=== PATIENT | male | born 2000 | race Caucasian/White ===

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

== ENCOUNTER 2025-07-16 08:27 | Emergency (ER) | payer OTHER, SELFPAY ==
--- NOTE | ~2025-07-16 | XR_ITS ---
XR lumbar spine 2-3V Indication: back pain Comparison: None Findings: The vertebral heights are intact. No fracture or subluxation. The disc heights are intact. Soft tissues unremarkable Impression: No acute abnormality. Reviewed, dictated and finalized at location P. ALLER INSPECTOR FINAL Impression: No acute abnormality.
--- NOTE | ~2025-07-16 | XR_ITS ---
EXAMINATION: XR chest 2V, 07/16/2025 9:06 HISTORIAN RESEARCH ASSISTANT HISTORY: chest pain X 3 DAYS, ASTHMA, VAPES COMPARISON: No comparisons available. Technique: 2 views obtained. Findings: The lungs are clear, no effusion. No pneumothorax. Heart is normal size. Mediastinal and hilar contours are within normal limits. Bony thorax no acute abnormality. Impression: No acute cardiopulmonary abnormality. Reviewed, dictated and finalized at location P. ORIAN RESEARCH ASSISTANT Impression: No acute cardiopulmonary abnormality.
--- NOTE | 2025-07-16 08:34 | ECG_ITS ---
Test Date: 2025-07-16 08:38:34 Measurements Intervals Llewellyn Rate: 76 P: 28 NM: 171 QRS: 64 QRSD: 99 T: 9 QT: 343 QTc: 387 Interpretive Statements SINUS RHYTHM NORMAL ELECTROCARDIOGRAM No previous ECG available for comparison Electronically Signed On 07-16-2025 17:24:13 ASIAN ART CURATOR by Guido Wray M.D.
[2025-07-16 08:35] VITALS: BP 150/95; PULSE 80; PULSE 88; RESP 17; TEMP 36.4; O2SAT 100
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
[2025-07-16 08:46] VITALS: BP 133/86; PULSE 79; RESP 20; O2SAT 99
[2025-07-16 09:01] VITALS: BP 137/96; PULSE 78; RESP 17; O2SAT 99
--- NOTE | 2025-07-16 09:02 | ED_ITS ---
HPI - General Adult General Chief complaint: Back Pain/Injury Stated complaint: back pain since Tuesday. Palpitations Time Seen by Provider: 07/16/25 08:29 History of Present Illness HPI narrative: 25-year-old male with no significant past medical history presented to the emergency department for evaluation for lower back pain that started few days ago. Patient states that lower back pain has radiated up into his upper back and into his chest over the last few days and this morning. Patient states he did have an episode of some heart palpitations that lasted approximately 2 minutes. Patient was unable to measure his pulse at that time. Patient has no prior history of coronary disease, SVT, atrial fibrillation. Patient's primary complaint at time of evaluation is lumbar back pain Related Data Allergies Allergy/AdvReac Type Severity Reaction Status Date / Time fluoxetine (From Prozac) Allergy Unknown Hallucinati Verified 07/16/25 08:39 ng bacitracin (From Neosporin AdvReac Mild Rash Verified 07/16/25 08:39 ([id number])) neomycin (From Neosporin AdvReac Mild Rash Verified 07/16/25 08:39 ([id number])) polymyxin B (From Neosporin AdvReac Mild Rash Verified 07/16/25 08:39 ([id number])) Review of Systems 2 Review of Systems: All systems reviewed & are unremarkable except as noted in HPI and below PMFSH Past Medical History Medical History (Updated 07/16/25 @ 17:35 by Mahad Winston MD) Subdural hematoma Subarachnoid hemorrhage Epidural hematoma Fracture of parietal bone of skull Asthma Inguinal hernia (~05/2017) Surgical History Surgical History Hx of tympanostomy tubes History of hernia repair Family History Family History Mother Depression Bipolar 1 disorder Hypertension Father Mixed hyperlipidemia Social History Social History Years smoked: 3 Tobacco type: e-cigarettes/vaping Alcohol intake: unknown Substance use: current Substance use type: marijuana Occupation/Education: occupation Gender identity (if verbalized by the patient): Male Exam 2 Narrative: APPEARANCE: Well appearing, no pain, no distress, well-nourished. HEAD: normocephalic, atraumatic. EYES: PERRLA/EOMI, conjunctivae clear. NOSE: Normal no drainage EARS:TMS clear with good light reflex. THROAT: Pharynx clear, no exudate. NECK: Supple. No adenopathy, no masses. RESPIRATORY: Airway patent, respirations nonlabored. Clear to auscultation bilaterally, no rales, rhonchi, wheezing. CARDIOVASCULAR: Regular rate and rhythm without murmurs rubs or gallops. ABDOMINAL: Soft, nontender, nondistended, normal bowel sounds MUSCULOSKELETAL: Moves all extremities. Strength/ROM intact, No edema, No calf tenderness. NEURO: Alert. Cranial nerves II through XII intact. Good gait. Good coordination SKIN: Warm, dry. Normal Color Course Vital Signs Vital signs: Vital Signs Temperature 97.6 F 07/16/25 08:35 Pulse Rate 88 07/16/25 08:35 Respiratory Rate 17 07/16/25 08:35 Blood Pressure 150/95 H 07/16/25 08:35 Pulse Oximetry 100 07/16/25 08:35 Oxygen Delivery Room Air 07/16/25 08:35 Temperature 97.6 F 07/16/25 08:35 Pulse Rate 64 07/16/25 11:52 Respiratory Rate 16 07/16/25 11:52 Blood Pressure 115/72 07/16/25 11:52 Pulse Oximetry 98 07/16/25 11:52 Oxygen Delivery Room Air 07/16/25 08:35 Medical Decision Making [facility] Narrative Medical decision making narrative: 25-year-old male presents to the emergency department for evaluation for lower back pain and heart palpitations. Patient is currently afebrile with no leukocytosis hemoglobin of 14.9. D-dimer was ordered to evaluate for risk for pulmonary embolus. Patient's D-dimer was not elevated. Patient has no acute abnormalities on his CMP and patient has a normal TSH and Mag. Urine was negative for infection. Chest x-ray was ordered to evaluate for any cardiopulmonary abnormality related to his heart palpitations and intermittent upper back and chest pain. Lumbar x-ray was ordered to evaluate his lower back pain. Patient had a negative chest x-ray and negative lumbar spine x-ray. Patient was treated with Toradol for back pain and was also treated with a L of lactated Ringer's. On re-evaluation patient states he does feel improved. Patient was encouraged to take Tylenol and ibuprofen for the lower back pain and to have close follow-up with his primary care physician. Differential Diagnosis Differential Diagnosis: Back strain, back fracture, pulmonary embolism, pneumonia, SVT, AFib Vital Signs Vital Signs: Vital Signs Temperature 97.6 F 07/16/25 08:35 Pulse Rate 88 07/16/25 08:35 Respiratory Rate 17 07/16/25 08:35 Blood Pressure 150/95 H 07/16/25 08:35 Pulse Oximetry 100 07/16/25 08:35 Oxygen Delivery Room Air 07/16/25 08:35 Temperature 97.6 F 07/16/25 08:35 Pulse Rate 64 07/16/25 11:52 Respiratory Rate 16 07/16/25 11:52 Blood Pressure 115/72 07/16/25 11:52 Pulse Oximetry 98 07/16/25 11:52 Oxygen Delivery Room Air 07/16/25 08:35 Lab Data Lab results reviewed: Yes I reviewed the patient's lab results. 07/16/25 09:31 07/16/25 09:31 Labs: Lab Results 07/16/25 Range/Units 09:31 WBC 5.2 (4.5-10.0) K/mm3 RBC 5.19 (4.6-6.20) M/mm3 Hgb 14.9 (14.0-18.0) g/dL Hct 44.2 (42.0-52.0) % MCV 85.2 (80-100) fl MCH 28.7 (26-34) pg MCHC 33.7 (32-36) g/dl RDW 12.9 (11.5-14.5) % Plt Count 270 (150-375) k/mm3 MPV 10.8 H (7.4-10.4) fl Immature Gran % (Auto) 0.2 (0-0.5) % Neut % (Auto) 53.0 (45.5-73.1) % Lymph % (Auto) 30.1 (18.3-44.2) % [place] % (Auto) 13.2 H (2.6-8.5) % Eos % (Auto) 2.7 (0-4.4) % Baso % (Auto) 0.8 (0.2-1.2) % Lymph # (Auto) 1.57 (0.9-3.2) K/mm3 [place]och # (Auto) 0.7 H (0.1-0.6) K/mm3 Eos # (Auto) 0.1 (0-0.3) K/mm3 Baso # (Auto) 0.0 (0.0-0.1) K/mm3 Abs Immat Gran (auto) 0.01 (0.00-0.031) K/mm3 Absolute Neuts (auto) 2.8 (1.3-6.7) K/mm3 Absolute Nucleated RBC 0.000 (0.0-0.012) K/mm3 Nucleated RBC % 0.0 (0.0-0.2) % D-Dimer 0.42 (<0.48) ug/mL Sodium 141 (137-145) mmol/L Potassium 3.8 (3.4-5.0) mmol/L Chloride 105 (98-107) mmol/L Carbon Dioxide 30 (22-30) mmol/L Anion Gap 6 (4-12) mmol/L BUN 11 (9-20) mg/dL Creatinine 0.92 (0.7-1.3) mg/dL Estim Creat Clear Calc 112 ml/min Estimated GFR > 60 (59 - ) Glucose 91 (65-110) mg/dL Calcium 9.8 (8.4-10.2) mg/dL Magnesium 2.1 (1.6-2.3) mg/dL Total Bilirubin 1.5 H (0.2-1.3) mg/dL AST 31 (17-59) U/L ALT 20 (6-50) U/L Alkaline Phosphatase 78 (38-126) U/L Total Protein 8.4 H (6.3-8.2) g/dL Albumin 4.8 (3.5-5.1) g/dL TSH (Reflex) 1.980 (0.465-4.68) uIU/mL Urine Color Yellow (Yellow) Urine Appearance Clear (Clear) Urine pH 7.5 (5.0-9.0) Ur Specific [place] 1.006 (1.001-1.035) Urine Protein Negative (Negative) mg/dL Urine Glucose (UA) Negative (Negative) mg/dL Urine Ketones Negative (Negative) mg/dL Ur Blood (Man) Negative (Negative) Urine Nitrate Negative (Negative) Urine Bilirubin Negative (Negative) Urine Urobilinogen 0.2 (<2.0) mg/dL Leukocyte Esterase Rfl Negative (Negative) BLADIMIR/UL Imaging Data Radiologist's impression: Impressions Chest X-Ray 07/16/25 09:20 Impression: No acute cardiopulmonary abnormality. Lumbar Spine X-Ray 07/16/25 09:20 Impression: No acute abnormality. Discharge Plan Discharge Clinical Impression: Back pain, Palpitations Patient Disposition: Home Condition: Stable Instructions: Antibiotic Form, Back Pain (ED) Additional Instructions: Tylenol and ibuprofen for pain control. Flexeril for muscle spasm. Have have close follow-up with your primary care physician. If you have any worsening symptoms and please call or return to the emergency department. Patient Language: Yi Prescriptions: New cyclobenzaprine 10 mg tablet 10 mg PO BID PRN (Reason: muscle spasm) Qty: 14 0RF No Action albuterol sulfate 90 mcg/actuation HFA aerosol inhaler 2 inh INHALATION Q4-6H PRN (Reason: shortness of breath or wheezing) Qty: 8.5 1RF Follow-up/Referrals: Zack,MD Geoff [Primary Care Provider, Unknown]
--- OUTSIDE RECORDS SUMMARY | 2025-07-16 09:21 | XMS_ITS | Clinical Summary ---
Author Organization [facility] Address [address] [place] [address] Care Team Providers Care Follow Up Specialist Name Role Phone Josefina Grant MD Primary Care Provider [phone] Source Comments [facility],non-owned Affiliates and Associated Physician Practices is amultiple site organization consisting of ambulatory clinics and hospital sitesin [place], [place], [place] and [place]. This disclosure is being madepursuant to the Care Everywhere program and may not contain all information available regarding this patient. 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:41 AM PROFESSOR OF ECONOMICS Gender Identity Not on file Sexual Orientation Not on file Last Filed Vital Signs Vital Sign Reading Time Taken Comments Blood Pressure 128/74 07/26/2024 4:31 AM PROFESSOR OF ECONOMICS Pulse 76 07/26/2024 4:31 AM PROFESSOR OF ECONOMICS Temperature 37 C (98.6 F) 07/25/2024 10:04 PM PROFESSOR OF ECONOMICS Respiratory Rate 16 07/26/2024 4:31 AM PROFESSOR OF ECONOMICS Oxygen Saturation 100% 07/26/2024 4:31 AM PROFESSOR OF ECONOMICS Inhaled Oxygen Concentration - - Weight 68 kg (150 lb) 07/25/2024 10:04 PM PROFESSOR OF ECONOMICS Height 177.8 cm (5' 10) 07/25/2024 10:04 PM PROFESSOR OF ECONOMICS Body Mass Index 21.52 07/25/2024 10:04 PM PROFESSOR OF ECONOMICS Plan of Treatment Health Maintenance Due Date [...] patient's age to complete this topic Insurance [employer] [facility] [employer] Advance Directives * Full Code (Latest Code Status on File) Date Activated Date Inactivated Comments 04/06/2021 10:40 PM 04/09/2021 5:35 PM * Full Code Date Activated Date Inactivated Comments 04/13/2017 4:17 PM 04/18/2017 10:38 AM Care Teams Follow Up Specialist Relationship Specialty Start Date End Date Josefina Grant MD [address] [place] [address] PCP - General Family Medicine 05/14/21
--- OUTSIDE RECORDS SUMMARY | 2025-07-16 09:21 | XMS_ITS | Clinical Summary ---
Author Organization [facility] Address [address] [place] [address] Care Team Providers Care Gym Teacher Name Role Phone Geoff Dixon MD Primary Care Provider [phone] Allergies Active Allergy Reactions Criticality Noted Date Comments Emdtxmfu-[id number]-Sxdyiymoo Itching,Redness Low 0 10/30/2024 Medications cetirizine (ZyrTEC) [...] (05/15/2018): Added automatically from request for surgery [id number] Inguinal hernia 05/04/2018 Scrotal pain 05/02/2018 MDD [...] above. Assessment & Plan (08/02/2018 5:46 PM PRISON TEACHER): Angel Luis appears to be euthymic, denies [...] treatment. Assessment & Plan (08/02/2018 7:28 PM PRISON TEACHER): Patient still with anxiety symptoms, including anticipatory [...] on file Legal Sex Male 3:30 AM PRISON TEACHER Gender Identity Not on file Sexual Orientation [...] 10/20, 03/05/2015 Medical Devices Implanted Type Area Stove Bottom Worker Device Identifier Shelf Expiration Date Model / Serial / Lot [employer] [id number] Soft Mesh 6x6in Patch Knitted Flat Sheet Groin Hernia Square Mesh - [id number] - [id number] Implanted:Qty : 1 on 05/24/2018 by John Louis MD at [facility] Mesh Left: Groin [employer] [id number] 10/19/2022 [id number] / [id number] / [id number] Insurance [place] [id number] ANTH ACCESS CHOICE Advance Directives For more information, please contact: [phone] * Full Code (Latest Code Status on File) Date Activated Date Inactivated Comments 11/12/2024 2:37 PM 11/12/2024 8:15 PM Care Teams Gym Teacher Relationship Specialty Start Date End Date Geoff Dixon MD [address] [place] [address] PCP - General Family Medicine 12/12/24
[2025-07-16 09:32] VITALS: BP 138/83; PULSE 70; RESP 17; O2SAT 100
[2025-07-16] MEDS: CYCLOBENZAPRINE HCL 10 MG TABLET PO (09:32)
[2025-07-16] MEDS: KETOROLAC 30 MG/ML VIAL (*BKC) IV PUSH (09:32)
[2025-07-16 09:39] LABS: Hematocrit 44.2 % (42.0-52.0); Hemoglobin 14.9 g/dL (14.0-18.0); Immature Granulocyte Percent A 0.2 % (0-0.5); Lymphocytes Absolute Auto 1.57 K/mm3 (0.9-3.2); Mean Corpuscular HGB Conc 33.7 g/dl (32-36); Mean Corpuscular Hemoglobin 28.7 pg (26-34); Mean Corpuscular Volume 85.2 fl (80-100); Nucleated Red Blood Cells Absolute Auto 0.000 K/mm3 (0.0-0.012); Nucleated Red Blood Cells Perc 0.0 % (0.0-0.2); Platelet Count Result 270 k/mm3 (150-375); Red Blood Count 5.19 M/mm3 (4.6-6.20); White Blood Count 5.2 K/mm3 (4.5-10.0)
[2025-07-16 09:41] LABS: Add Urine Microscopic? NO; Appearance Urine Clear (Clear); Glucose Urine UA Negative (Negative); Leukocyte Esterase Ur Negative LEU/UL (Negative); Nitrate Urine Negative (Negative); Specific Grav Ur 1.006 (1.001-1.035)
[2025-07-16 10:05] LABS: Alanine Aminotransferase 20 U/L (6-50); Albumin Level 4.8 g/dL (3.5-5.1); Alkaline Phosphatase 78 U/L (38-126); Anion Gap 6 mmol/L (4-12); Aspartate Amino Transferase 31 U/L (17-59); Bilirubin,Total 1.5 mg/dL (0.2-1.3); Blood Urea Nitrogen 11 mg/dL (9-20); Calcium 9.8 mg/dL (8.4-10.2); Carbon Dioxide 30 mmol/L (22-30); Chloride 105 mmol/L (98-107); Estimated CRCL calculation 112 ml/min; Estimated Glomerular Filt Rate > 60; Glucose 91 mg/dL (65-110); Magnesium 2.1 mg/dL (1.6-2.3); Potassium 3.8 mmol/L (3.4-5.0); Sodium 141 mmol/L (137-145); Total Protein 8.4 g/dL (6.3-8.2)
[2025-07-16 10:36] LABS: Thyroid Stimulating Hormone Reflex 1.980 uIU/mL (0.465-4.68)
[2025-07-16 11:52] VITALS: BP 115/72; PULSE 64; RESP 16; O2SAT 98
== END 2025-07-16 11:53 | disposition home or self-care (01) ==
PROVIDERS: Emergency Provider Emergency Medicine; PCP Family Medicine
DX: M54.50 Low back pain, unspecified (principal); R00.2 Palpitations; J45.909 Unspecified asthma, uncomplicated
CPT/HCPCS: 36415; 71046; 72100; 80053; 81003; 83735; 84443; 85025; 85380; 93005; 96374; 99284; A9270; J1885